=== PATIENT | female | born 1970 | race African-American/Black ===

== ENCOUNTER 2016-07-02 09:11 | Outpatient (CLI) | payer OTHER ==
--- NOTE | 2016-07-02 13:04 | Mammography Report ---
BILATERAL DIGITAL SCREENING MAMMOGRAM with CAD: 07/02/16 09:11:00 CLINICAL: Routine screening. COMPARISON:05/10/15 FINDINGS: The breasts are heterogeneously dense, which may obscure small masses. No mass, architectural distortion or suspicious calcifications. IMPRESSION: No mammographic evidence of malignancy. BI-RADS CATEGORY: 1 - - Negative RECOMMENDATION: Routine mammographic screening in one year. COMMENT: Patient follow-up letters are generated by our [employer] application.
== END 2016-07-02 09:12 | disposition home or self-care (01) ==
LOC: SPVWC 09:11
PROVIDERS: ATTEND Family Medicine
DX: Z12.31 Encounter for screening mammogram for malignant neoplasm of breast (principal)
CPT/HCPCS: 77067; G0202

== ENCOUNTER 2018-04-21 11:00 | Outpatient (CLI) | payer OTHER ==
--- NOTE | 2018-04-21 12:26 | Mammography Report ---
RIGHT DIGITAL DIAGNOSTIC MAMMOGRAM : 04/21/18 11:00:00 CLINICAL: Abnormal screening mammogram. Report of a [facility] screening mammogram with charli from 02/07/18 describes right upper outer architectural distortion. COMPARISON:02/07/18 and [facility] mammogram from 07/02/16. FINDINGS: Routine views plus spot magnification CC and MLO views were performed and demonstrate a stable fibroglandular pattern since the 2017 mammogram.No mass, architectural distortion or suspicious calcifications. Specifically, the previously described architectural distortion is not reproduced on this exam. IMPRESSION: No mammographic evidence of malignancy. BI-RADS CATEGORY: 1 - - Negative RECOMMENDATION: Routine mammographic screening in one year. ACR BI-RADS MAMMOGRAPHIC CODES: 0 = Needs additional imaging evaluation; 1 = Negative; 2 = Benign; 3 = Probably benign; 4 = Suspicious; 5 = Malignant; 6 = Known biopsy-proven malignancy COMMENT: 1. Dense breast tissue, i.e., adenosis, fibrocystic changes, etc., may obscure an underlying neoplasm. 2. Approximately 10% of cancers are not detected with mammography. 3. A negative mammography report should not delay biopsy if a clinically suspicious mass is present. COMMENT: Patient follow-up letters are generated by our [employer] application.
== END 2018-04-21 11:01 | disposition home or self-care (01) ==
LOC: SPVWC 11:00
PROVIDERS: ATTEND Family Medicine
DX: R92.8 Other abnormal and inconclusive findings on diagnostic imaging of breast (principal)